=== PATIENT | female | born 1955 | race Two or more races ===

== ENCOUNTER → 2024-06-22 | Emergency (ER) | payer OTHER ==
[~2024-06-22] VITALS: Ht 160 cm; Wt 88.2 kg
[~2024-06-22] MED LIST: AMOX-457 PO; DICY-1 PO; LISI-893 PO; METF-1211 PO; METO25 PO; PANT-31 PO; SUCR1TAB2 PO
[2024-06-22 18:13] VITALS: TEMP 98.9
[2024-06-22 18:40] LABS: COVID AG,FIA SOURCE NASAL SWAB
[2024-06-22 19:11] LABS: SARS-COV2 (COVID) ANTIGEN,FIA Negative (Negative)
[2024-06-22 19:12] LABS: INFLUENZA TYPE A NEGATIVE FOR TYPE A (NEGATIVE); INFLUENZA TYPE B NEGATIVE FOR TYPE B (NEGATIVE)
[2024-06-22 19:50] LABS: RAPID GROUP A STREP NEGATIVE (NEGATIVE)
[2024-06-22] MEDS: SODIUM CHLORIDE 0.9% 1,000 ML IV ONE (20:49)
[2024-06-22] MEDS: KETOROLAC TROMETHAMINE 30 MG/ML VIAL IVP ONE (21:04)
[2024-06-22] MEDS: AMOX TR/POT CLAV 875 MG/125 MG TABLET PO ONE (21:04)
[2024-06-22 21:09] LABS: HEMATOCRIT 39.6 % (36-46); HEMOGLOBIN 12.8 g/dL (12.0-16.0); MEAN CORPUSCULAR HEMOGLOBIN 26.2 pg (26.0-34.0); MEAN CORPUSCULAR HGB CONC 32.3 G/dL (31.0-37.0); MEAN CORPUSCULAR VOLUME 81 fL (80-100); PLATELET COUNT (AUTO) 149 K/uL (150-450); RED BLOOD CELL COUNT(AUTO) 4.89 MIL/uL (4.00-5.20); RED CELL DISTRIBUTION WIDTH 15.2 % (11.5-14.5); WHITE BLOOD COUNT (AUTO) 12.6 K/uL (4.5-11.0)
[2024-06-22 21:25] LABS: ANION GAP 13 mmol/L (8-16); CALCIUM, TOTAL 9.1 mg/dL (8.8-10.5); CARBON DIOXIDE 25 mmol/L (22-29); CHLORIDE 96 mmol/L (98-107); CREATININE 0.91 mg/dL (0.60-1.30); GLOMERULAR FILTR. RATE CALC > 60 mL/min (>60); GLUCOSE,RANDOM 193 mg/dL (70-110); POTASSIUM 3.4 mmol/L (3.5-5.1); SODIUM SERUM 134 mmol/L (136-145); UREA NITROGEN, BLOOD 9 mg/dL (7-18)
[2024-06-22 21:29] LABS: B-TYPE NATRIURETIC PEPTIDE 38 pg/mL (0-100)
[2024-06-22 21:34] LABS: CREATINE KINASE, TOTAL ONLY 117 U/L (26-192); TROPONIN I-HIGH SENSITIVITY 11 ng/L (<51)
[2024-06-22 21:59] VITALS: BP 130/77; PULSE 100; RESP 20; O2SAT 97
[2024-06-22 22:09] LABS: BAND NEUTROPHILS % (MANUAL) 8 % (0-5); EOSINOPHILS % (MANUAL) 2 % (1-6); LYMPHOCYTES % (MANUAL) 10 % (22-44); MONOCYTES % (MANUAL) 5 % (2-9); SEGMENTED NEUTROPHILS % 75 % (40-70); TOTAL CELLS COUNTED 100
== END | disposition home or self-care (01) ==
LOC: EMS 18:05
DX: H66.93 Otitis media, unspecified, bilateral (principal); E11.9 Type 2 diabetes mellitus without complications; Z79.84 Long term (current) use of oral hypoglycemic drugs; Z87.19 Personal history of other diseases of the digestive system; Z79.899 Other long term (current) drug therapy; Z20.822 Contact with and (suspected) exposure to COVID-19
CPT/HCPCS: 99285; 96374; 71045; 96361; 87426; 80048; 82550; 83880; 84484; 85025; 87430; 87804; 93005; J1885; J7030

== ENCOUNTER 2025-03-10 23:00 | Emergency (ER) | payer MEDICARE, OTHER ==
[~2025-03-10] VITALS: Ht 167.6 cm; Wt 68.2 kg
[2025-03-10 23:10] VITALS: BP 145/77; PULSE 87; RESP 16; TEMP 98.2; O2SAT 98
[2025-03-10 23:26] LABS: GLUCOMETER DEV NAME(LOC) ERT.7; GLUCOSE,POINT OF CARE 154 MG/DL (70-110)
[2025-03-11 00:06] LABS: APPEARANCE,URINE HAZY (CLEAR); GLUCOSE, URINE (UA) NEGATIVE (NEGATIVE); LEUKOCYTE ESTERASE ,URINE LARGE (NEGATIVE); NITRATE,URINE NEGATIVE (NEGATIVE); OCCULT BLOOD,URINE MODERATE (NEGATIVE); SPECIFIC GRAVITIY, URINE 1.033 (1.003-1.030)
[2025-03-11 00:19] LABS: SQUAMOUS EPITHELIAL CELL,UR Rare /LPF (None Seen)
[2025-03-11] MEDS: ACETAMINOPHEN 500 MG TABLET PO ONE (00:19)
[2025-03-11] MEDS ORDERED: PHEN-674 PO (01:10)
[2025-03-11] MEDS: PHENAZOPYRIDINE HCL 100 MG TABLET PO ONE (01:24)
== END 2025-03-11 01:33 | disposition home or self-care (01) ==
LOC: EMS 23:00
DX: R30.0 Dysuria (principal); R31.9 Hematuria, unspecified; E11.9 Type 2 diabetes mellitus without complications; I10 Essential (primary) hypertension; Z87.19 Personal history of other diseases of the digestive system; Z79.899 Other long term (current) drug therapy
CPT/HCPCS: 81001; 82962; 99283

== ENCOUNTER 2025-04-23 20:16 | Emergency (ER) | payer MEDICARE, OTHER ==
[~2025-04-23] VITALS: Ht 167.6 cm; Wt 79.5 kg
[~2025-04-23 20:16] MED LIST changes: -AMOX-457 PO; +PHEN-674 PO
[2025-04-23 23:54] VITALS: BP 133/74; PULSE 89; RESP 15; TEMP 97.3; O2SAT 97
== END 2025-04-24 00:30 | disposition home or self-care (01) ==
LOC: EMS 20:16
DX: H81.12 Benign paroxysmal vertigo, left ear (principal); E11.9 Type 2 diabetes mellitus without complications; I10 Essential (primary) hypertension; Z87.19 Personal history of other diseases of the digestive system; Z79.899 Other long term (current) drug therapy
CPT/HCPCS: 82962; 99283